=== PATIENT | male | born 1995 | race African-American/Black ===

== ENCOUNTER 2017-09-03 04:11 | Emergency (ER) | payer BC ==
[~2017-09-03] VITALS: Ht 177.8 cm; Wt 99.8 kg
[2017-09-03 04:36] VITALS: BP 137/71
[2017-09-03] MEDS ORDERED: MORPHINE SULFATE INJ 2 MG/ML DISP.SYRIN IV ONE (05:00)
[2017-09-03] MEDS ORDERED: ONDANSETRON HCL/PF 4 MG/2 ML VIAL IVP ONE (05:00)
[2017-09-03] MEDS ORDERED: ONDANSETRON HCL/PF 4 MG/2 ML VIAL ONE (05:03)
[2017-09-03] MEDS ORDERED: MORPHINE SULFATE INJ 4 MG/ML DISP.SYRIN ONE (05:03)
--- NOTE | 2017-09-03 05:11 | NUR ---
CALLED [facility] AND THEY STATE THEY DO NOT HAVE AN OMFS AT THEIR FACILITY
--- NOTE | 2017-09-03 05:14 | NUR ---
CALLED [facility] AND SPOKE WITH JAVIER, HE STATES THEY ARE ONLY DOING HIGHER LEVEL OR CARE AT THIS TIME FOR PEDIATRIC OR OB TRANSFERS
[2017-09-03 05:22] LABS: BASOPHILS # (AUTO) 0.1 /CMM (0.0-0.2); BASOPHILS % (AUTO) 0.4 % (0.0-2.0); EOSINOPHILS % (AUTO) 0.4 % (0.0-6.0); HEMATOCRIT 50 % (39-51); HEMOGLOBIN 17.1 g/dL (13.5-17.5); LYMPHOCYTES % (AUTO) 10.6 % (20.0-44.0); MEAN CORPUSCULAR HGB CONC 34 g/dl (31.0-36.0); MEAN CORPUSCULAR VOLUME 84 fL (80-96); MONOCYTES # (AUTO) 0.6 /CMM (0.1-1.30); MONOCYTES % (AUTO) 3.1 % (2.0-12.0); NEUTROPHILS # (AUTO) 15.9 /CMM (1.8-8.9); NEUTROPHILS % (AUTO) 85.5 % (43.0-81.0); PLATELET COUNT (AUTO) 173 /CMM (150-450); RDW COEFFICIENT OF VARIATION 12.9 (11.5-15.0); RED BLOOD CELL COUNT(AUTO) 5.94 MIL/uL (4.5-6.0); WHITE BLOOD COUNT (AUTO) 18.5 K/uL (4.3-11.0)
[2017-09-03 05:37] LABS: CALCIUM, SERUM 8.7 mg/dL (8.5-10.1); CREATININE 1.3 mg/dL (0.6-1.3); POTASSIUM 3.7 mmol/L (3.5-5.1)
[2017-09-03 05:37] LABS: INR 0.98 (0.87-1.13)
--- NOTE | 2017-09-03 06:10 | NUR ---
Patient does not wish to proceed with medical care recommended by Dr. MCMAHON ). Patient given information related to possible complications, up to and including , which could occur as a result of leaving the hospital at this time. Patient verbalizes understanding of risks involved due to leaving against medical advice. Patient has signed AMA form.
== END 2017-09-03 05:26 | disposition left against medical advice (07) ==
LOC: ER 04:13
DX: S02.69XA Fracture of mandible of other specified site, initial encounter for closed fracture (principal); S02.19XA Other fracture of base of skull, initial encounter for closed fracture; V49.59XA Passenger injured in collision with other motor vehicles in traffic accident, initial encounter; Y93.89 Activity, other specified; Y92.413 State road as the place of occurrence of the external cause; Y99.8 Other external cause status
CPT/HCPCS: 36415; 70450-TC; 70486-TC; 72125-TC; 80048-TC; 85025-TC; 85730-TC; A4606; J2270; J2405; Z7610